=== PATIENT | female | born 1985 | race Caucasian/White ===

== ENCOUNTER 2016-08-19 15:21 | Emergency (ER) | payer OTHER ==
[2016-08-19] MEDS ORDERED: AMITRIPTYLINE H25 M1 PO (15:33)
[2016-08-19] MEDS ORDERED: CYCLOBENZAPRINE5 M1 PO (17:18)
[2016-08-19] MEDS ORDERED: PERCOCET 5-3251 EACH PO (17:18)
[2016-08-19] MEDS ORDERED: PREDNISONE20 M1 PO (17:18)
[2016-08-20] MEDS ORDERED: DELTASONE20 MG PO (11:00)
[2016-08-20] MEDS ORDERED: PERCOCET 5-3251 EACH PO (11:01)
[2016-08-20] MEDS ORDERED: CYCLOBENZAPRINE5 M1 PO (11:01)
[2016-08-20] MEDS ORDERED: IMITREX50 M2 PO (11:04)
== END 2016-08-19 17:32 ==
LOC: EDMED 15:21
DX: M54.5 Low back pain (principal); G43.909 Migraine, unspecified, not intractable, without status migrainosus; Z79.899 Other long term (current) drug therapy; Z87.891 Personal history of nicotine dependence
CPT/HCPCS: J1170; J1885; J2405

== ENCOUNTER 2016-08-20 08:48 | Inpatient (IN) | payer OTHER ==
[~2016-08-20 08:48] MED LIST: AMITRIPTYLINE H25 M1 PO; CYCLOBENZAPRINE5 M1 PO; PERCOCET 5-3251 EACH PO; PREDNISONE20 M1 PO
[2016-08-20 10:06] LABS: BASO % 0.1 % (0-2); HCT-HEMATOCRIT 39.3 % (34.0-49.0); HGB-HEMOGLOBIN 13.5 gm/dl (12.0-15.5); IMMATURE GRANULOCYTES ABSOLUTE 0.01 tho/cmm (0-0.03); IMMATURE GRANULOCYTES PERCENT 0.1 % (0-0.3); LYMPH % 10.5 % (20-45); LYMPH ABSOLUTE COUNT 1.1 tho/cmm (0.8-4.5); MCHC MEAN CORPUSCULAR HGB CONC 34.4 % (32.0-36.0); MCV (MEAN CELL VOLUME) 90.1 fl (82.0-96.0); MEAN PLATELET VOLUME 10.5 cmc (9.4-12.4); MONO % 3.4 % (0-12); MONOCYTE ABSOLUTE COUNT 0.4 tho/cmm (0.0-1.2); NEUTROPHIL ABSOLUTE COUNT 9.2 tho/cmm (1.6-8.0); NEUTROPHIL-AUTOMATED 9.2 tho/cmm (1.6-8.0); NEUTROPHILS % 85.9 % (40-80); PLATELET COUNT 270 tho/cmm (150-450); RED BLOOD COUNT 4.36 mil/cmm (4.00-5.20); RED CELL DISTRIBUTION WIDTH 12.9 % (12.4-16.4); WHITE BLOOD COUNT 10.7 tho/cmm (4.0-10.0)
[2016-08-20 10:13] LABS: ALB/GLOB RATIO 0.8 (0.8-2.0); ALBUMIN 3.6 g/dl (3.5-5.0); ALKALINE PHOSPHATASE 67 U/L (33-138); ALT/SGPT 23 U/L (12-78); ANION GAP 12 mmol/L (0-20); AST/SGOT 18 U/L (10-40); BILIRUBIN,TOTAL 0.2 mg/dl (0-1.5); BLOOD UREA NITROGEN 13 mg/dl (6-24); C-REACTIVE PROTEIN 0.8 mg/dl (0-0.9); CALCIUM 8.7 mg/dl (8.5-10.5); CARBON DIOXIDE-VENOUS 24 mmol/L (22-32); CHLORIDE 111 mmol/l (96-110); GLUCOSE 133 mg/dL (70-110); POTASSIUM 4.2 mmol/L (3.7-5.1); SODIUM 143 mmol/L (135-145); eGFR VALUE FOR BLACK >90 mL/Min
[2016-08-20 10:16] LABS: PREGNANCY-SERUM NEGATIVE (NEGATIVE)
[2016-08-20 10:47] LABS: ESR-ERYTHROCYTE SED RATE 22 mm/hr (0-20)
[2016-08-20] MEDS ORDERED: DELTASONE20 MG PO (11:00)
[2016-08-20] MEDS ORDERED: PERCOCET 5-3251 EACH PO (11:01)
[2016-08-20] MEDS ORDERED: CYCLOBENZAPRINE5 M1 PO (11:01)
[2016-08-20] MEDS ORDERED: IMITREX50 M2 PO (11:04)
[2016-08-20 12:01] LABS: URINE BILIRUBIN NEGATIVE (NEG); URINE BLOOD NEGATIVE (NEG); URINE GLUCOSE (UA) NEGATIVE (NEG); URINE KETONE NEGATIVE (NEG); URINE LEUKOCYTE ESTERASE NEGATIVE (NEG); URINE NITRITE NEGATIVE (NEG); URINE PH 6.5 (5.0-8.0); URINE PROTEIN SMALL (NEG)
[2016-08-20 12:02] LABS: URINE APPEARANCE CLEAR; URINE COLOR YELLOW
[2016-08-20 12:21] LABS: URINE EPITHELIAL CELLS 0-1 /[HPF] (0-10); URINE RBC 0 /[HPF] (0-5); URINE WBC 0-1 /[HPF] (0-5)
[2016-08-22] MEDS ORDERED: TYLENOL325 M2 PO (15:01)
[2016-08-22] MEDS ORDERED: HYDROCODON-ACE1 EA16 PO (15:02)
[2016-08-22] MEDS ORDERED: COLACE100 M1 PO (15:04)
== END 2016-08-22 18:00 | DRG 520 ==
LOC: EDMED 08:48 → EMR2 12:17 → 5EB 13:35 → ORE 08-21 22:01 → PACU 08-21 22:36 → 5EB 08-21 23:30
PROVIDERS: Emergency Medicine; ADMIT Internal Medicine
PROC: 0SB20ZZ Excision of Lumbar Vertebral Disc, Open Approach (ICD-10-PCS; principal; 2016-08-21)
DX: M51.16 Intervertebral disc disorders with radiculopathy, lumbar region (principal); G43.909 Migraine, unspecified, not intractable, without status migrainosus; M54.5 Low back pain; R33.9 Retention of urine, unspecified
CPT/HCPCS: J0690; J1100; J1170; J2270; J2405; J3010; J7030; P9612